=== PATIENT | male | born 1950 | race Caucasian/White ===

== ENCOUNTER 2017-06-07 14:23 | Emergency (ER) | payer MEDICARE ==
[2017-06-07 14:26] VITALS: BP 179/74; PULSE 54; RESP 14; TEMP 98.2; O2SAT 98
--- NOTE | 2017-06-07 14:48 | PD ---
HPI Chief Complaint: Hip Injury Time Seen by Provider: 14:36 Travel History International Travel<30 days: No Contact w/Intl Traveler<30days: No Traveled to known affect area: No History of Present Illness HPI 67-year-old male presents to the emergency department with 2 weeks of left hip pain. That he has had chronic hip pain for the last 4-5 years but it is usually resolved with it 800 mg Motrin within 1 week. This pain is different because it is mainly located in his left buttocks region and radiates down to his left foot. This pain is also different because he normally does not have radiation of pain down his leg. States his pain is moderate and has pins and needles in his left foot. Movement increases his pain, rest somewhat relieves it. He saw his primary care physician at [facility] and he recommended an x- ray of his left hip. He denies back pain. Denies fever, chills, chest pain, shortness of breath, IV drug use, saddle anesthesia, loss of bowel or bladder function. Denies groin pain or dysuria. PFSH Social History Tobacco Use: Yes Allergies-Medications (Allergen,Severity, Reaction): Coded Allergies: Penicillins (Verified Allergy, Unknown, Hives, 06/07/17) Reported Meds & Prescriptions Reported Meds & Active Scripts Active Medrol Dosepak (Methylprednisolone) 4 Mg Dspk 4 Mg PO DIRECTED Per Pharmacist direction Reported Omeprazole 10 Mg Cap 10 Mg PO DAILY Lisinopril 5 Mg Tab 5 Mg PO DAILY Review of Systems Except as stated in HPI: all other systems reviewed are Neg Physical Exam Narrative GENERAL: Well-nourished, well-developed patient. SKIN: Focused skin assessment warm/dry. HEAD: Normocephalic. EYES: No scleral icterus. No injection or drainage. NECK: Supple, trachea midline. No JVD or lymphadenopathy. CARDIOVASCULAR: Regular rate and rhythm without murmurs, gallops, or rubs. RESPIRATORY: Breath sounds equal bilaterally. No accessory muscle use. MUSCULOSKELETAL: No cyanosis, or edema. TTP to left gluteus. Bilateral legs neurovascularly intact. Grade 5 out of 5 strength bilateral lower extremities. No tenderness to palpation of the back. BACK: Nontender without obvious deformity. No CVA tenderness. Data Data Last Documented VS Vital Signs Date Time Temp Pulse Resp B/P (MAP) Pulse Ox O2 Delivery O2 Flow Rate FiO2 11/13/17 16:15 06/07/17 14:26 98.2 54 14 98 Orders Orders Methylprednisolone So Succ Inj (Solumedr (06/07/17 15:00) Methylprednisolone So Succ Inj (Solumedr (06/07/17 15:00) Hip, Uni(Ap&Lat) W Ap Pelvis (06/07/17 ) Ed Discharge Order (06/07/17 15:44) MDM Medical Decision Making Medical Screen Exam Complete: Yes Emergency Medical Condition: Yes Differential Diagnosis Left-sided sciatica versus lumbago versus muscle spasms Narrative Course 67-year-old male presents to the emergency department with 2 weeks of left hip pain. That he has had chronic hip pain for the last 4-5 years but it is usually resolved with it 800 mg Motrin within 1 week. This pain is different because it is mainly located in his left buttocks region and radiates down to his left foot. This pain is also different because he normally does not have radiation of pain down his leg. States his pain is moderate and has pins and needles in his left foot. Movement increases his pain, rest somewhat relieves it. He saw his primary care physician at [facility] and he recommended an x- ray of his left hip. He denies back pain. Denies fever, chills, chest pain, shortness of breath, IV drug use, saddle anesthesia, loss of bowel or bladder function. Denies groin pain or dysuria. Vital Signs Stable 67y pleasant male in mild distress. TTP to left glut. Neurovascularly intact. Solumedrol administered. 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 I explained the imaging and pathophysiology of his condition. Advised he follow up with his PCP. Medrol dose pack for symptoms relief. Advised that if his symptoms worsened or persisted to return to the ED for further eval and treatment. Diagnosis Primary Impression: Lumbago Qualified Codes: M54.42 - Lumbago with sciatica, left side Referrals: [facility] Additional Instructions: Take medication as prescribed Perform light stretches of the lower back and legs, and alternate heat and ice packs. If you develop increased pain, weakness, fever, chills, or bowel or bladder issues, return to the ED for further treatment and evaluation. Follow up with your primary care physician in 2-3 days. Scripts Methylprednisolone Dosepak (Medrol Dosepak) 4 Mg Dspk 4 MG PO DIRECTED, #1 DSPK 0 Refills Per Pharmacist direction Prov: Jose Rafael Jacobo MD 06/07/17 Disposition: 01 DISCHARGE HOME Condition: Stable Lisette Vásquez Jun 07, 2017 14:48
[2017-06-07] MEDS ORDERED: methylPREDNISolone SOD SUCC 125 MG/2 ML VIAL IV PUSH ONE (15:00)
[2017-06-07] MEDS ORDERED: methylPREDNISolone SOD SUCC 125 MG/2 ML VIAL IM ONE (15:00)
--- NOTE | 2017-06-07 15:38 | RADRPT ---
EXAM DATE/TIME: 06/07/2017 15:17 [place] COMPARISON: No previous studies available for comparison. INDICATIONS : Chronic left hip pain, worsened in the last 2 weeks. MEDICAL HISTORY : None. SURGICAL HISTORY : None. ENCOUNTER: Initial ACUITY: >1 year PAIN SCORE: 7/10 LOCATION: Left hip. FINDINGS: Degenerative changes about the left hip with marked loss of articular cartilage. Fracture is not adryan reciated. Moderate SI joint degenerative changes are noted worse on the left CONCLUSION: Degenerative changes, negative for fracture. Mono Crawley MD FACR on June 07, 2017 at 15:36 Board Certified Radiologist. This report was verified electronically.
[2017-06-07] MEDS ORDERED: MEDR4PAK PO (15:45)
[2017-06-07] MEDS ORDERED: OMEP10CA PO (15:52)
[2017-06-07] MEDS ORDERED: LISI-519 PO (15:52)
== END 2017-06-07 16:15 | disposition home or self-care (01) ==
LOC: NEPK 14:23
DX: M54.42 Lumbago with sciatica, left side (principal)
CPT/HCPCS: 73502; 96372; 99284; J2930